=== PATIENT | male | born 1970 | race African-American/Black ===

== ENCOUNTER → 2021-03-17 | Outpatient (REF) ==
--- NOTE | 2021-03-17 09:09 | REP ---
INDICATION: PAIN COMPARISON: None. TECHNIQUE: AP, lateral, bilateral oblique views right and left wrist. FINDINGS: Left wrist: Patient is noted to be prior open reduction and fixation for distal radial metaphyseal fracture. Orthopedic hardware is in satisfactory position. The carpal bones demonstrate generalized age-related changes including subtle periarticular sclerosis and minimal elements of joint space narrowing primarily at the 1st and 2nd carpometacarpal joints and the radiocarpal joint line. No acute fracture or dislocation. Surrounding soft tissues are grossly normal. Right wrist: Right wrist demonstrates generalized age-related changes with minimal increased sclerosis along the radial surface and mild associated radiocarpal joint space narrowing. No acute fracture or dislocation. Surrounding soft tissues are grossly normal. IMPRESSION: Mild age-related changes noted. Old left wrist injury. <Electronically signed by Cirilo Salmeron > 03/17/21 0960
--- NOTE | 2021-03-17 09:11 | REP ---
INDICATION: PAIN COMPARISON: None. TECHNIQUE: AP, lateral, bilateral oblique views right and left foot. FINDINGS: Left foot: Prior fixation with orthopedic hardware spanning the 1st metatarsophalangeal joint. Underlying generalized age-related changes noted. No evidence for acute fracture or dislocation. Right foot: Focal degenerative changes at the 1st metatarsophalangeal joint includes periarticular sclerosis, joint space narrowing, and very subtle marginal spurring along with the minimal hallux valgus angulation. No evidence for acute fracture or dislocation.. IMPRESSION: Degenerative changes as noted above. <Electronically signed by Cirilo Salmeron > 03/17/21 0916
--- NOTE | 2021-03-17 09:14 | REP ---
INDICATION: PAIN COMPARISON: None. TECHNIQUE: AP and lateral views of the right and left knee FINDINGS: Right knee: Mild age-related degenerative changes include increased sclerosis along the tibial plateau with very subtle medial spurring along the medial tibial plateau. No acute or healed injury identified. No effusion. Left knee: Mild age-related degenerative changes include subtle increased sclerosis along the tibial plateau. No acute or healed injury identified. No effusion. IMPRESSION: Mild age-related changes suggested. <Electronically signed by Cirilo Salmeron > 03/17/21 0964
== END ==
LOC: M PLAIMG 08:39
PROVIDERS: ATTEND Internal Medicine
DX: M25.561 Pain in right knee (principal); M25.562 Pain in left knee; M25.531 Pain in right wrist; M25.532 Pain in left wrist; M19.071 Primary osteoarthritis, right ankle and foot; M19.072 Primary osteoarthritis, left ankle and foot